=== PATIENT | female | born 1965 | race Caucasian/White ===

== ENCOUNTER 2019-02-22 16:45 | Inpatient (IN) ==
--- NOTE | 2019-02-22 16:56 | CT Scan Report ---
CT head/brain wo con CT DOSE: 729.78 mGycm HISTORY: Mental status change Stroke evaluation TECHNIQUE: Multiaxial CT images of the head were performed without the use of intravenous contrast. A dose lowering technique was utilized adhering to the principles of ALARA. Comparison: None. Findings: The paranasal sinuses and mastoid air cells are clear. The calvarium and skull base are int act. The ventricles and sulci are within normal limits. There is no mass, hematoma, midline shift, or acute infarct. Impression: No acute intracranial abnormality. ACT 112: Negative or not required by law. The above report was generated using voice recognition software. It may contain grammatical, syntax or spelling errors. Electronically signed by: Jorge L Blakely M.D. 02/22/2019 4:55 PM
[2019-02-22] MEDS ORDERED: LORazepam 2 MG/4 ML VIAL ONE (17:09)
[2019-02-22 17:12] LABS: Basophils # (auto) 0.05 K/uL (0-0.2); Basophils % (auto) 0.8 %; Eosinophils # (auto) 0.15 K/uL (0-0.5); Eosinophils % (auto) 2.3 %; Hematocrit (blood only) 38.3 % (37-47); Hemoglobin 12.6 g/dL (12.0-16.0); Immature Granulocytes # (auto) 0.01 K/uL (0.00-0.02); Immature Granulocytes % (auto) 0.2 %; Lymphocytes # (auto) 2.45 K/uL (1.2-3.4); Lymphocytes % (auto) 37.2 %; Mean Corpuscular Hgb Conc 32.9 g/dL (32-36); Mean Corpuscular Volume 91.2 fL (80-100); Mean Platelet Volume 9.7 fL (7.4-10.4); Monocytes # (auto) 0.61 K/uL (0.11-0.59); Monocytes % (auto) 9.3 %; Neutrophils # (auto) 3.31 K/uL (1.4-6.5); Neutrophils % (auto) 50.2 %; Platelet Count 231 K/uL (130-400); RDW Coefficient of Variation 13.4 % (11.5-14.5); RDW Standard Deviation 44.9 fL (36.4-46.3); White Blood Count 6.58 K/uL (4.8-10.8)
[2019-02-22 17:23] LABS: Partial Thromboplastin Ratio 0.9; Partial Thromboplastin Time 25.1 Seconds (21.0-31.0); Prothrombin Time 10.3 Seconds (9.0-12.0)
[2019-02-22 17:29] LABS: Alanine Aminotransferase 19 U/L (12-78); Albumin Level 4.1 gm/dl (3.4-5.0); Aspartate Aminotransferase 14 U/L (15-37); BUN Creatinine Ratio 8.5 (10-20); Blood Urea Nitrogen 8 mg/dl (7-18); Calcium 9.3 mg/dl (8.5-10.1); Carbon Dioxide 28 mmol/L (21-32); Chloride 104 mmol/L (98-107); Creatinine Clr Calc Pharmacy 76.1 ml/min; Est GFR (African American) 78.7; Est GFR (Non-African American) 67.9; Glucose 147 mg/dl (70-99); Potassium 3.5 mmol/L (3.5-5.1); Sodium 140 mmol/L (136-145)
[2019-02-22 17:34] LABS: Albumin Globulin Ratio 1.2 (0.9-2); Alkaline Phosphatase 83 U/L (45-117); Bilirubin,Total 0.3 mg/dl (0.2-1); Globulin 3.5 gm/dl (2.5-4.0); Total Protein 7.6 gm/dl (6.4-8.2); Troponin I < 0.015 ng/ml (0-0.045)
[2019-02-22] MEDS ORDERED: OPTIRAY 320 125ml IV PRN (17:50)
--- NOTE | 2019-02-22 18:17 | CT Scan Report ---
CT angio head w con HISTORY: Mental status change code stroke TECHNIQUE: Multiaxial CT angiography of the head was performed IV contrast: 100 cc Maximum intensi ty projection images were also obtained. A dose lowering technique was utilized adhering to the prin ciples of HAYLIE. COMPARISON: None. FINDINGS: There is no mass, hematoma, midline shift, or acute infarct. Visualized intracranial internship coordinator al carotid arteries, distal vertebral arteries, and basilar artery are widely patent. There is no sig nificant stenosis, occlusion, or aneurysm seen within the bilateral ACAs, MCAs, or ortho tech. IMPRESSION: No significant stenosis, occlusion, or aneurysm within the [place]. ACT 112: Negative or not required by law. The above report was generated using voice recognition software. It may contain grammatical, syntax or spelling errors. Electronically signed by: Jorge L Blakely M.D. 02/22/2019 6:16 PM
--- NOTE | 2019-02-22 18:19 | CT Scan Report ---
CT angio neck with con HISTORY: Mental status change code stroke TECHNIQUE: Multiaxial CT angiography of the neck was performed IV contrast: 100 cc nonionic All alexis urements were calculated based on NASCET criteria. Maximum intensity projection images were also obt ained. A dose lowering technique was utilized adhering to the principles of ALARA. COMPARISON STUDY: None. FINDINGS: The aortic arch and proximal great vessels are widely patent. There is no significant sten osis, occlusion, or dissection identified within the bilateral common carotid, internal carotid, or v ertebral arteries. IMPRESSION: No significant stenosis, occlusion, or dissection identified within the carotid or vertebral arteries . ACT 112: Negative or not required by law. The above report was generated using voice recognition software. It may contain grammatical, syntax or spelling errors. Electronically signed by: Jorge L Blakely M.D. 02/22/2019 6:18 PM
--- NOTE | 2019-02-22 20:24 | History & Physical Report ---
Date of Service February 22, 2019 Assessment & Plan (1) Holden's paralysis: 53-year-old female with a history of multiple sclerosis, depression presents with confusion, word finding issues, sensory issues. On-call tele- stroke neurologist believes that her symptoms represent postictal state with recommendation to start Lamictal. According to the patient's son, new lesions were found on MRI recently. She takes Copaxone for MS and her son states she was recently started on amantadine. Patient is quite confused at this time. Will admit to telemetry with continued neurochecks. 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 Continue stroke work-up including neurochecks, dysphagia evaluation, PT OT CTA of neck, head and head CT were negative We will obtain any MRI of the brain Neurology consulted, appreciate recommendations We will keep the patient n.p.o. at this time as she is still confused. Advance diet as tolerated Depression Continue fluoxetine 40 mg CODE STATUS Full DVT prophylaxis SCDs, ambulate with assistance (2) Seizure: (3) Multiple sclerosis: (4) Depression: History of Present Illness Primary Care Provider: Dr. Alesia Zavala 53-year-old female with a history of multiple sclerosis, depression presents with confusion, word finding issues, sensory issues. At the time of admission, the patient is able to answer yes or no questions, but is still confused and unable to fully articulate herself. The majority of the history was gotten from the son and from the ED physician. The son states that she was alone today and he had gotten a call that she was at the emergency room. Seizure was not observed by any family members. Patient was alone prior to coming into the hospital. According to the ED doc, on-call tele-stroke neurologist believes that her symptoms represent postictal state with recommendation to start Lamictal. The son states that she has been having increased fatigue for about 1 month and was seen by neurologist. They got MRI at that time and reported that she does have a new lesion and her status was changed from relapse/remitting to mild progressive multiple sclerosis. According to the son, she was started on amantadine and was continuing her Copaxone. In addition, the patient takes fluoxetine for depression which her dose was recently increased and November. 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 Beliefs That Will Affect Care: None Current Living Situation: Alone Other Information That Helps Us Care for You: No Feels Safe at Home: Yes Smoking Status: Never smoker Hx Alcohol Use: Yes Alcohol type: wine Hx Substance Use: No Review of Systems Review of Systems: Unobtainable due to mental health condition Physical Exam Constitutional: WD/WN, vitals as above Eyes: PERRL, conjunctivae normal, anicteric sclerae ENMT: external ear and nose normal, oropharynx normal Neck: trachea midline, no thyromegaly Respiratory: normal respiratory effort, lungs clear to auscultation Cardiovascular: RRR, no murmur, no edema Gastrointestinal (Abdomen): normal bowel sounds, soft, nontender, no hepatosplenomegaly Musculoskeletal: no cyanosis or clubbing, extremities motor strength 5/5 Skin: no rashes, warm and dry Neurologic: PERRL, EOMI, accommodation nl, no face palsy, no dysarthria moves all extremities, awake and + confused Speech / Cognition: + abnormal speech and + expressive aphasia Motor/Sensory: no sensory deficit Strength is equal bilaterally in upper and lower extremities Psychiatric: A+Ox3, euthymic affect Results & Data Vital Signs (Past 12 Hours) Vital Signs Temp Pulse Pulse Resp BP BP Pulse Ox 02/22/19 19:43 74 18 142/84 H 95 02/22/19 18:45 75 02/22/19 18:43 83 139/87 96 02/22/19 18:30 82 97 02/22/19 18:18 88 133/80 98 02/22/19 18:15 83 97 02/22/19 18:05 80 145/87 H 93 02/22/19 18:00 92 H 98 02/22/19 17:58 92 H 159/94 H 99 02/22/19 17:30 83 162/91 H 99 02/22/19 17:19 89 96 02/22/19 17:18 88 165/99 H 98 02/22/19 17:15 90 97 02/22/19 17:00 88 99 02/22/19 16:59 91 H 98 02/22/19 16:57 164/99 H 99 02/22/19 16:55 37.0 C 90 18 164/99 H 99 Diagnostic Findings CTA of head neck were negative Head CT was negative Code Status & VTE Plan Code Status Full code VTE Prophylaxis Plan VTE Prophylaxis will be ordered: Yes Supervising Physician Co-Signing Physician Notes Patient was seen and examined by me personally. I reviewed the chart, the orders and discussed the case in detail with Dr. Darrel Santiago MD . I read this H&P and agree with its contents to entirety. Resident Activity Tracking Resident Involvement: Resident Care Provided Care Provided: Adult Hospital Medicine
--- NOTE | 2019-02-22 20:49 | Emergency Department Note ---
Entered by Elise Matias acting as a scribe for History of Present Illness General Chief complaint: Stroke Alert Time Seen by Provider: 02/22/19 16:46 History of Present Illness Provider complaint: stroke-like symptoms Onset (ago): hour(s) 1 Location: head Pain Consistency: + other (episode) Maximum Pain Intensity: 0 Quality: + other (stroke-like symptoms) Associated symptoms: + denies other symptoms (pain) and + other (unable to speak, unable to speak starting at 1550) The patient is a 53 year old female who presents to the ED with complaints of an episode of stroke-like symptoms that started approximately 1 hour ago. Per EMS, the patient is not able to speak and she has a mild left sided facial droop. The patients son (on the phone) states that he was texting the patient at 1300 and she seemed normal. The patients son state that he called the patient at 1550 and she was not unable to verbally respond to him so he activated 911. Per EMS, the patient is not responding to requests. The patient denies being in pain. Per EMS, the patient has a history of MS for which she takes Copaxone. Per EMS, the patient's blood sugar en route was 136. HPI and ROS are limited. Home Medications Home Medications Medication Instructions Recorded Confirmed Type amantadine HCl 100 mg PO BID 02/22/19 02/22/19 History fluoxetine 40 mg PO DAILY 02/22/19 02/22/19 History glatiramer [Copaxone] 40 mg SUBCUT DIRECTED 02/22/19 02/22/19 History Allergies Allergy/AdvReac Type Severity Reaction Status Date / Time SULFA Allergy Unknown Uncoded 02/15/05 13:54 Past Med/Surg History Medical History Multiple sclerosis Social History Smoking Status: Unknown if ever smoked Review of Systems Unobtainable due to cognitive status Physical Exam Vital Signs Vital Signs - 24 hr 02/22/19 16:55 02/22/19 16:57 02/22/19 16:59 Temperature 37.0 C Temperature Source Oral Pulse Rate 90 91 H Pulse Rate [Apical] Pulse Rate from SpO2 Sensor 98 H 92 H Respiratory Rate 18 Respiratory Effort / Characteristics Non-Labored Respiratory Depth Normal Blood Pressure 164/99 H 164/99 H Blood Pressure [Right Arm] Blood Pressure Mean 120 131 Blood Pressure Mean [Right Arm] Pulse Oximetry 99 99 98 Oxygen Delivery Method Sepsis Recent Fever Within 48 Hours No Sepsis New/Unexplained Change in Mental Status No Sepsis Action Taken by Nursing No Action Required 02/22/19 17:00 02/22/19 17:15 02/22/19 17:18 Temperature Temperature Source Pulse Rate 88 90 88 Pulse Rate [Apical] Pulse Rate from SpO2 Sensor 89 90 87 Respiratory Rate Respiratory Effort / Characteristics Respiratory Depth Blood Pressure 165/99 H Blood Pressure [Right Arm] Blood Pressure Mean 134 Blood Pressure Mean [Right Arm] Pulse Oximetry 99 97 98 Oxygen Delivery Method Sepsis Recent Fever Within 48 Hours Sepsis New/Unexplained Change in Mental Status Sepsis Action Taken by Nursing 02/22/19 17:19 02/22/19 17:30 02/22/19 17:58 Temperature Temperature Source Pulse Rate 89 83 92 H Pulse Rate [Apical] Pulse Rate from SpO2 Sensor 90 84 93 H Respiratory Rate Respiratory Effort / Characteristics Respiratory Depth Blood Pressure 162/91 H 159/94 H Blood Pressure [Right Arm] Blood Pressure Mean 101 115 Blood Pressure Mean [Right Arm] Pulse Oximetry 96 99 99 Oxygen Delivery Method Sepsis Recent Fever Within 48 Hours Sepsis New/Unexplained Change in Mental Status Sepsis Action Taken by Nursing 02/22/19 18:00 02/22/19 18:05 02/22/19 18:15 Temperature Temperature Source Pulse Rate 92 H 80 83 Pulse Rate [Apical] Pulse Rate from SpO2 Sensor 89 78 84 Respiratory Rate Respiratory Effort / Characteristics Respiratory Depth Blood Pressure 145/87 H Blood Pressure [Right Arm] Blood Pressure Mean 107 Blood Pressure Mean [Right Arm] Pulse Oximetry 98 93 97 Oxygen Delivery Method Sepsis Recent Fever Within 48 Hours Sepsis New/Unexplained Change in Mental Status Sepsis Action Taken by Nursing 02/22/19 18:18 02/22/19 18:30 02/22/19 18:43 Temperature Temperature Source Pulse Rate 88 82 83 Pulse Rate [Apical] Pulse Rate from SpO2 Sensor 89 82 82 Respiratory Rate Respiratory Effort / Characteristics Respiratory Depth Blood Pressure 133/80 139/87 Blood Pressure [Right Arm] Blood Pressure Mean 101 95 Blood Pressure Mean [Right Arm] Pulse Oximetry 98 97 96 Oxygen Delivery Method Sepsis Recent Fever Within 48 Hours Sepsis New/Unexplained Change in Mental Status Sepsis Action Taken by Nursing 02/22/19 18:45 02/22/19 19:43 02/22/19 20:18 Temperature Temperature Source Pulse Rate 75 Pulse Rate [Apical] 74 75 Pulse Rate from SpO2 Sensor 76 Respiratory Rate 18 18 Respiratory Effort / Characteristics Respiratory Depth Blood Pressure Blood Pressure [Right Arm] 142/84 H 127/88 Blood Pressure Mean Blood Pressure Mean [Right Arm] 103 101 Pulse Oximetry 95 96 Oxygen Delivery Method Room Air Room Air Sepsis Recent Fever Within 48 Hours Sepsis New/Unexplained Change in Mental Status Sepsis Action Taken by Nursing 02/22/19 20:44 02/22/19 20:53 02/22/19 20:57 Temperature Temperature Source Pulse Rate Pulse Rate [Apical] 83 Pulse Rate from SpO2 Sensor Respiratory Rate 18 Respiratory Effort / Characteristics Respiratory Depth Blood Pressure Blood Pressure [Right Arm] 138/95 Blood Pressure Mean Blood Pressure Mean [Right Arm] 109 Pulse Oximetry 88 L 92 97 Oxygen Delivery Method Room Air Room Air Room Air Sepsis Recent Fever Within 48 Hours Sepsis New/Unexplained Change in Mental Status Sepsis Action Taken by Nursing HENT: Exam performed. -Head: Normocephalic and atraumatic. -Right Ear: External ear normal. No mastoid tenderness. -Left Ear: External ear normal. No mastoid tenderness. -Mouth/Throat: The oropharynx is clear and moist. No trismus in the jaw. No dental abscesses or uvula swelling. No oropharyngeal exudate or tonsillar abscesses. EYES: Conjunctivae and EOM are normal. Pupils are equal, round, and reactive to light. Right eye exhibits no discharge. Left eye exhibits no discharge. No scleral icterus. NECK: Normal range of motion. Neck supple. No JVD present. No spinous process tenderness present. No carotid bruit present. No rigidity. No tracheal deviation and normal range of motion present. No Brudzinski's sign and no Kernig's sign no abram. CV: Normal rate, regular rhythm, normal heart sounds and intact distal pulses. There is no peripheral edema. Palpable radial pulses bue. PULM/CHEST: Effort normal and breath sounds normal. No respiratory distress. No stridor. She has no wheezes. She has no rales. Chest Wall: She exhibits no tenderness. ABD: The abdomen is soft. Bowel sounds are normal. She has no distension. No mass is present. There is no tenderness. There is no rebound, no guarding, no Posey's sign and no tenderness at McBurney's point. Rovsig negative NEURO: She is alert. NIHSS: 16. NIHSS (1b: 2, 1c: 1, 6-a: 3, 6-b: 3, 7: 2, 9: 3, 10: 2.) Course Course 165: Code stroke was called from the field by ED provider who took the EMS phone call. Patient was taken directly to CAT scan on arrival to the emergency department. Past medical records reviewed. The patient was evaluated in room B1. A complete history and physical exam was performed. Spoke with the patient's son who is on her cell phone that EMS had out. Per the son, he was texting the patient at 1 PM and she seemed normal. He then stated he called her around 3 PM and she was unable to speak properly so he became concerned and called the authorities to check up on the patient. No one has seen the patient today to know her exact last known normal. 1702: The patient developed an involuntary twitch to the right side of her face. She is still alert with no tonic/clonic movement or LOC. 1704: The patient's CT is normal and we are awaiting a call from telestroke. 1716: I spoke with Dr. Jamey Peace teleroke. He states that he will be online in 5 minutes. He suggests having 5 mg of Ativan ready to give the patient. 1724: Teleneurology is on the phone and evaluating the patient now. Patient's NIH stroke score is now 10. The patient now has twitching in her right upper extremity. He recommends giving the patient 1 mg of Ativan to see if it responds to the twitching. The patient is not 100% aphasic anymore as she is now able to speak in 1 word answers. 1740: The teleneurologist states that he believes the patient's symptoms are more due to seizure. He recommends a head and neck CTA and to load the patient with 1g Keppra IV piggyback. He asked us to call him back if there are any abnormal findings or deterioration in her medical condition. 1840: Patient's CTA was negative. Labs within normal limits. I spoke to the patient's son again at [phone]. [facility] states that they do not believe the patient suffered from an ischemic stroke. 1846: I discussed the patient's case with Dr. Glynn [facility] Hospitalist. She will accept the patient for further management. Consultations Consultation #1: I spoke with Dr. Jamey Peace telestroke. He states that he will be online in 5 minutes. He suggests having 5 mg of Ativan ready to give the patient. Time: 17:16 Consultation #2: I discussed the patient's case with Dr. Glynn [facility] Hospitalist. She will accept the patient for further management. Time: 18:46 Administered Medications Ioversol (Optiray 320 125ml) 119 ml IV ONCE PRN PRN Reason: Interaction Checking Stop: 02/26/19 17:49 Last Admin: 02/22/19 17:52 Dose: 119 ml Documented by: [id number] Discontinued Medications Levetiracetam 1,000 mg/ (Dextrose) 110 mls @ 440 mls/hr IV NOW STA Stop: 02/22/19 17:53 Last Infusion: 02/22/19 18:25 Dose: 0 mls/hr Documented by: [id number] Admin: 02/22/19 18:08 Dose: 440 mls/hr Documented by: [id number] Lorazepam (Ativan) Confirm Administered Dose 2 mg .ROUTE .STK-MED ONE Stop: 02/22/19 17:10 Last Increment: 02/22/19 18:52 Dose: 1 mg Documented by: [id number] Increment: 02/22/19 17:26 Dose: 1 mg Documented by: [id number] Critical Care Time Critical Care Time: Yes Total Critical Care Time: 54 I have personally spent 54 minutes of critical care time in the direct management of this patient. This includes bedside care, interpretation of diagnostic studies, and testing, discussion with consultants, patient, and family members, and other required patient management activities. This 54 minutes is in excess of all separately billable procedures. Medical Decision Making Medical Records Attestation: I reviewed the patient's medical records. Home Medications Current Medication List: was personally reviewed by me Laboratory Data Attestation: I reviewed the patient's lab results. Result diagrams: 02/22/19 17:02 02/22/19 17:02 Lab Results 02/22/19 02/22/19 02/22/19 Range/Units 17:02 17:02 17:02 WBC 6.58 (4.8-10.8) K/uL RBC 4.20 (4.2-5.4) M/uL Hgb 12.6 (12.0-16.0) g/dL Hct 38.3 (37-47) % MCV 91.2 (80-100) fL MCH 30.0 (25-34) pg MCHC 32.9 (32-36) g/dL RDW Std Deviation 44.9 (36.4-46.3) fL RDW Coeff of Marty 13.4 (11.5-14.5) % Plt Count 231 (130-400) K/uL MPV 9.7 (7.4-10.4) fL Immature Gran % (Auto) 0.2 % Neut % (Auto) 50.2 % Lymph % (Auto) 37.2 % Ida % (Auto) 9.3 % Eos % (Auto) 2.3 % Baso % (Auto) 0.8 % Immature Gran # (Auto) 0.01 (0.00-0.02) K/uL Neut # (Auto) 3.31 (1.4-6.5) K/uL Lymph # (Auto) 2.45 (1.2-3.4) K/uL Ida # (Auto) 0.61 H (0.11-0.59) K/uL Eos # (Auto) 0.15 (0-0.5) K/uL Baso # (Auto) 0.05 (0-0.2) K/uL PT 10.3 (9.0-12.0) Seconds INR 1.0 (0.9-1.1) APTT 25.1 (21.0-31.0) Seconds PTT Ratio 0.9 Sodium 140 (136-145) mmol/L Potassium 3.5 (3.5-5.1) mmol/L Chloride 104 (98-107) mmol/L Carbon Dioxide 28 (21-32) mmol/L Anion Gap 8.0 (3-11) BUN 8 (7-18) mg/dl Creatinine 0.95 (0.6-1.2) mg/dl Est Cr Clr Drug Dosing 76.1 ml/min Est GFR ( Amer) 78.7 Est GFR (Non-Af Amer) 67.9 BUN/Creatinine Ratio 8.5 L (10-20) Glucose 147 H (70-99) mg/dl Calcium 9.3 (8.5-10.1) mg/dl Magnesium 2.0 (1.8-2.4) mg/dl Total Bilirubin 0.3 (0.2-1) mg/dl AST 14 L (15-37) U/L ALT 19 (12-78) U/L Alkaline Phosphatase 83 (45-117) U/L Troponin I < 0.015 (0-0.045) ng/ml Total Protein 7.6 (6.4-8.2) gm/dl Albumin 4.1 (3.4-5.0) gm/dl Globulin 3.5 (2.5-4.0) gm/dl Albumin/Globulin Ratio 1.2 (0.9-2) Blood Type Antibody Screen 02/22/19 Range/Units 17:02 WBC (4.8-10.8) K/uL RBC (4.2-5.4) M/uL Hgb (12.0-16.0) g/dL Hct (37-47) % MCV (80-100) fL MCH (25-34) pg MCHC (32-36) g/dL RDW Std Deviation (36.4-46.3) fL RDW Coeff of Marty (11.5-14.5) % Plt Count (130-400) K/uL MPV (7.4-10.4) fL Immature Gran % (Auto) % Neut % (Auto) % Lymph % (Auto) % Ida % (Auto) % Eos % (Auto) % Baso % (Auto) % Immature Gran # (Auto) (0.00-0.02) K/uL Neut # (Auto) (1.4-6.5) K/uL Lymph # (Auto) (1.2-3.4) K/uL Ida # (Auto) (0.11-0.59) K/uL Eos # (Auto) (0-0.5) K/uL Baso # (Auto) (0-0.2) K/uL PT (9.0-12.0) Seconds INR (0.9-1.1) APTT (21.0-31.0) Seconds PTT Ratio Sodium (136-145) mmol/L Potassium (3.5-5.1) mmol/L Chloride (98-107) mmol/L Carbon Dioxide (21-32) mmol/L Anion Gap (3-11) BUN (7-18) mg/dl Creatinine (0.6-1.2) mg/dl Est Cr Clr Drug Dosing ml/min Est GFR ( Amer) Est GFR (Non-Af Amer) BUN/Creatinine Ratio (10-20) Glucose (70-99) mg/dl Calcium (8.5-10.1) mg/dl Magnesium (1.8-2.4) mg/dl Total Bilirubin (0.2-1) mg/dl AST (15-37) U/L ALT (12-78) U/L Alkaline Phosphatase (45-117) U/L Troponin I (0-0.045) ng/ml Total Protein (6.4-8.2) gm/dl Albumin (3.4-5.0) gm/dl Globulin (2.5-4.0) gm/dl Albumin/Globulin Ratio (0.9-2) Blood Type O Positive Antibody Screen NEGATIVE Imaging Data Radiologist's Impression: Radiology results as stated below per my review and the radiologist's interpretation: CT head/brain wo con CT DOSE: 729.78 mGycm HISTORY: Mental status change Stroke evaluation TECHNIQUE: Multiaxial CT images of the head were performed without the use of intravenous contrast. A dose lowering technique was utilized adhering to the principles of ALARA. Comparison: None. Findings: The paranasal sinuses and mastoid air cells are clear. The calvarium and skull base are intact. The ventricles and sulci are within normal limits. There is no mass, hematoma, midline shift, or acute infarct. Impression: No acute intracranial abnormality. ACT 112: Negative or not required by law. The above report was generated using voice recognition software. It may contain grammatical, syntax or spelling errors. Electronically signed by: Jorge L Blakely M.D. 02/22/2019 4:[address] angio head w con HISTORY: Mental status change code stroke TECHNIQUE: Multiaxial CT angiography of the head was performed IV contrast: 100 cc Maximum intensity projection images were also obtained. A dose lowering technique was utilized adhering to the principles of ALARA. COMPARISON: None. FINDINGS: There is no mass, hematoma, midline shift, or acute infarct. Vis ualized intracranial internal carotid arteries, distal vertebral arteries, and basilar artery are widely patent. There is no significant stenosis, occlusion, or aneurysm seen within the bilateral ACAs, MCAs, or oil pumper. IMPRESSION: No significant stenosis, occlusion, or aneurysm within the [place]. ACT 112: Negative or not required by law. The above report was generated using voice recognition software. It may contain grammatical, syntax or spelling errors. Electronically signed by: Jorge L Blakely M.D. 02/22/2019 6:[address] angio neck with con HISTORY: Mental status change code stroke TECHNIQUE: Multiaxial CT angiography of the neck was performed IV contrast: 100 cc nonionic All measurements were calculated based on NASCET criteria. Maximum intensity projection images were also obtained. A dose lowering technique was utilized adhering to the principles of ALARA. COMPARISON STUDY: None. FINDINGS: The aortic arch and proximal great vessels are widely patent. There is no significant stenosis, occlusion, or dissection identified within the bilateral common carotid, internal carotid, or vertebral arteries. IMPRESSION: No significant stenosis, occlusion, or dissection identified within the carotid or vertebral arteries. ACT 112: Negative or not required by law. The above report was generated using voice recognition software. It may contain grammatical, syntax or spelling errors. Electronically signed by: Jorge L Blakely M.D. 02/22/2019 6:18 PM ECG Data Attestation: I personally reviewed and interpreted this ECG as follows: Indication: + other (stroke) Rate (beats per minute): 92 Rhythm: + sinus rhythm ECG Intervals/blocks: + Normal QRS, + Normal IL and + Normal QT-c ECG ST segments: no ST depression and no ST elevation Blood Pressure Blood Pressure Findings: Elevated blood pressure Blood Pressure Disposition: further management by hospitalist ELLIE Narrative 1652: Code stroke was called from the field by ED provider who took the EMS ph one call. Patient was taken directly to CAT scan on arrival to the emergency department. Past medical records reviewed. The patient was evaluated in room B1. A complete history and physical exam was performed. Spoke with the patient's son who is on her cell phone that EMS had out. Per the son, he was texting the patient at 1 PM and she seemed normal. He then stated he called her around 3 PM and she was unable to speak properly so he became concerned and called the authorities to check up on the patient. No one has seen the patient today to know her exact last known normal. 1702: The patient developed an involuntary twitch to the right side of her face. She is still alert with no tonic/clonic movement or LOC. 1704: The patient's CT is normal and we are awaiting a call from telestroke. 1716: I spoke with Dr. Jamey Peace telestroke. He states that he will be online in 5 minutes. He suggests having 5 mg of Ativan ready to give the patient. 1724: Teleneurology is on the phone and evaluating the patient now. Patient's NIH stroke score is now 10. The patient now has twitching in her right upper extremity. He recommends giving the patient 1 mg of Ativan to see if it responds to the twitching. The patient is not 100% aphasic anymore as she is now able to speak in 1 word answers. 1740: The teleneurologist states that he believes the patient's symptoms are more due to seizure. He recommends a head and neck CTA and to load the patient with 1g Keppra IV piggyback. He asked us to call him back if there are any abnormal findings or deterioration in her medical condition. 1840: Patient's CTA was negative. Labs within normal limits. I spoke to the patient's son again at [phone]. [facility] states that they do not believe the patient suffered from an ischemic stroke. 1846: I discussed the patient's case with Dr. Breaux- [facility] Hospitalist. She will accept the patient for further management. Impression & Plan Seizure, Holden's paralysis Discharge Plan Visit Data Chief Complaint: Stroke Alert ED Provider: Bj Gonzalez Discharge Problem: Seizure, Holden's paralysis Patient Disposition: Being Evaluated by Hospitalist Discharge Instructions Interventions: ED Discharge Assessment Last Done: 02/22/19 20:58 Forms Stand Alone Forms: My [employer] Prescriptions Prescriptions: No Action amantadine HCl 100 mg tablet 100 mg PO BID RF: 0 fluoxetine 40 mg capsule 40 mg PO DAILY RF: 0 glatiramer [Copaxone] 40 mg/mL syringe 40 mg SUBCUT DIRECTED RF: 0 Referrals Referrals: PCP,NO [Primary Care Provider] - The scribe's documentation has been prepared under my direction and personally reviewed by me in its entirety. I confirm that the note above accurately reflects all work, treatment, procedures, and medical decision making performed by me.
[2019-02-22] MEDS ORDERED: POLYETHYLENE (MIRALAX) 17 GM PACK PO PRN (21:42)
[2019-02-22] MEDS ORDERED: PHARMACIST DISCHARGE MED REC CONSULT PRN (21:42)
[2019-02-22] MEDS ORDERED: ACETAMINOPHEN 325 MG TAB PO PRN (21:42)
[2019-02-22] MEDS ORDERED: ONDANSETRON INJ 2 MG/ML 2 ML VIAL IV PRN (21:42)
[2019-02-23] MEDS ORDERED: GADOBUTROL 65ML VIAL IV PRN (01:51)
--- NOTE | 2019-02-23 04:01 | Billing Data ---
Date of Service February 22, 2019 Coding Level of Care Code 16093 Initial Inpt Care Lvl 3
[2019-02-23 06:21] LABS: Estimated Average Glucose 120 mg/dl; Hemoglobin A1C 5.8 % (4.5-5.6)
[2019-02-23 07:04] LABS: Basophils # (auto) 0.04 K/uL (0-0.2); Basophils % (auto) 0.8 %; Eosinophils # (auto) 0.12 K/uL (0-0.5); Eosinophils % (auto) 2.3 %; Hematocrit (blood only) 37.6 % (37-47); Hemoglobin 12.3 g/dL (12.0-16.0); Immature Granulocytes # (auto) 0.01 K/uL (0.00-0.02); Immature Granulocytes % (auto) 0.2 %; Lymphocytes # (auto) 1.84 K/uL (1.2-3.4); Lymphocytes % (auto) 35.5 %; Mean Corpuscular Hemoglobin 29.6 pg (25-34); Mean Corpuscular Hgb Conc 32.7 g/dL (32-36); Mean Corpuscular Volume 90.4 fL (80-100); Mean Platelet Volume 9.6 fL (7.4-10.4); Monocytes % (auto) 9.7 %; Neutrophils # (auto) 2.67 K/uL (1.4-6.5); Neutrophils % (auto) 51.5 %; Platelet Count 223 K/uL (130-400); RDW Coefficient of Variation 13.5 % (11.5-14.5); RDW Standard Deviation 44.7 fL (36.4-46.3); Red Blood Count 4.16 M/uL (4.2-5.4); White Blood Count 5.18 K/uL (4.8-10.8)
--- NOTE | 2019-02-23 07:22 | Magnetic Resonance Report ---
Brain MRI WITH AND WITHOUT CONTRAST HISTORY: history of multiple sclerosis, new seizure TECHNIQUE: Multiplanar multisequence MRI of the brain was performed both before and after the intrave nous administration of contrast. COMPARISON STUDY: Head CT 02/22/2019. FINDINGS: No areas of restricted diffusion to suggest acute infarction. There is no mass, hematoma, m idline shift. The midline structures are intact. Paranasal sinuses and mastoid air cells are clear. T he major vascular flow-voids at the skull base are well-maintained. There are few scattered punctate foci of T2 hyperintensity seen within the periventricular and subcortical white matter of the suprate ntorial brain. There is mild atrophy/encephalomalacia involving the majority of the left temporal lob e as well as the left posterior parietal lobe. This also demonstrates subtle increased T2 signal sugg estive of gliosis. 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 IMPRESSION: 1. No acute infarct. 2. A few scattered punctate foci of T2 hyperintensity within the periventricular and subcortical whit e matter of the supratentorial brain. These are nonspecific but favor mild microvascular ischemic kay[place] nge. A demyelinating disease, Lyme disease, or migraines can also have a similar appearance. 3. There is mild atrophy/encephalomalacia involving the majority of the left temporal lobe as well as the left posterior parietal lobe. This also demonstrates subtle increased T2 signal suggestive of gl iosis. 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 ACT 112: Negative or not required by law. Electronically signed by: Kwasi De Guzman M.D. 02/23/2019 7:20 AM
[2019-02-23 07:37] LABS: BUN Creatinine Ratio 7.2 (10-20); Calcium 9.1 mg/dl (8.5-10.1); Est GFR (Non-African American) 77.7; Potassium 3.6 mmol/L (3.5-5.1)
[2019-02-23] MEDS ORDERED: FLUOXETINE HCL 20 MG CAP PO SCH (09:00)
[2019-02-23] MEDS ORDERED: levETIRAcetam 500 MG TAB PO SCH ×2 (09:00→21:00)
[2019-02-23] MEDS ORDERED: CHOLECALCIFEROL 1,000 UNITS TAB PO SCH (12:15)
[2019-02-23] MEDS ORDERED: AMANTADINE HCL 100 MG CAPSULE PO SCH (12:15)
--- NOTE | 2019-02-23 13:44 | Neurology Consultation ---
Date of Consultation February 23, 2019 Assessment & Plan (1) Multiple sclerosis: 1. continue Copaxone 40 mg for now 3 x per week 2. Ocreveus approval pending will follow up with approval issues as outpatient 3.steroids IV tried in the past were not very helpful for seizure flare 4. 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 seizure precautions 2. Keppra 1 g loaded and Keppra 500 mg started increased to BID 3. CTA head and neck done no significant narrowing or stenosis 4. EEG was not ordered 5. there was not LOC according to patient but mostly speech issues unable to find the right words- she states this is similar to the event prior to her being diagnosed with MS 17 years ago 6. out patient EEG should be ordered (4) Depression: 1. currently on Prozac 40 mg daily Supervising Physician Co-Signing Physician Notes Patient was seen and examined. Son at bedside. Reports feeling better day. She has MS and is following with [facility]. On DMT and Amantadine for fatigue. Previo us MRI in Nov 2018. Admitted for possible aphasia and right face and arm numbness. Denies tongue biting or LOC.No of awareness.Denies loss of time or amnesia. No seizure activity witnessed. Denies incontinence or bowel or bladder issues. No fevers. On examine pupils are symmetric and reactive. Speech clear. Tongue midline with no abrasion. Face is symmetric. Comprehension is intact. She can repeat. Following commands. Sensation is intact. No brand or ankle clonus. No tremor or ataxia. Graphesia in both hands although may be due to poor effort. MRI reviewed as well as previous scan from Nov 2018. Multiple T2 Flair signal changes on axial with left temporal lobe atrophy / gliosis. Differential diagnosis includes pseudo-exacerbation Vs focal simple partial seizure. Would recommend to continue Keppra 500 mg BID for possible focal seizure without loss of awareness. Ok to continue amantandine for now. Outpatient routine EEG. Follow up in Neurology as outpatient. I did discuss obtaining a UA prior to leaving although patient declined. Ok to discharge from Neurology standpoint. Advised patient to rest for a few days and work excuse could be provided. History of Present Illness Reason for Consultation: possible seizure history MS Requesting Physician: Peter W Jimmy, DO Attending Physician: Stevan Marquez DO History of Present Illness Jess is a 53 year old female with a PMH multiple sclerosis, depression presents with confusion, word finding issues, and numbness in right arm. Tele neurologist believes that her symptoms represent postictal state and started on Keppra 1g and then 500 mg daily.. There were new lesions were found on MRI in November. She was seen by [facility] MS specialist Dr Gonzalez who recommended she be started on Ocrevus which is currently being reviewed by her insurance company. Currently she takes Copaxone three x per week since 2005 for MS and was on Avonex from [id number] previous to the Copaxone. She was recently started on amantadine for fatigue and was also complaining of cognitive dysfunction. She was very confused and was admitted for neuro checks it is unclear if there were any jerking movements during the episode. Currently she thinks she is closer to her baseline but still some issues with word findings. Her son is in the room and states he had been talking to her on the phone and she was unable to answer some of the questions she was asking. She states when she was in the ED she was unaware her hand was in the air and it was numb. that only lasted about 2 minutes. denies CP, SOB, abdominal pain, current one sided weakness, numbness tingling, N, V vision changes swallowing issues. Allergies Allergy/AdvReac Type Severity Reaction Status Date / Time SULFA Allergy Unknown Uncoded 02/15/05 13:54 Home Medications Home Medications Medication Instructions Recorded Confirmed Type amantadine HCl 100 mg PO BID 02/22/19 02/22/19 History fluoxetine 40 mg PO DAILY 02/22/19 02/22/19 History glatiramer [Copaxone] 40 mg SUBCUT DIRECTED 02/22/19 02/22/19 History levetiracetam [Keppra] 500 mg PO BID 30 Days #60 tab 02/23/19 Rx Patient History Medical History Multiple sclerosis Social History Communication Ability: Effective Recruitment And Outreach Assistant Required: No Beliefs That Will Affect Care: None Current Living Situation: Alone Other Information That Helps Us Care for You: No Feels Safe at Home: Yes Smoking Status: Never smoker Hx Alcohol Use: Yes Alcohol type: wine Hx Substance Use: No Physical Exam Physical Exam: Physical Exam: Constitutional: appearance nourished, healthy and normal Ears, Nose, Mouth and Throat: mucous membranes moist, no injection and skin normal, eyes normal Cardiovascular: normal S-1 and S-2 and regular rate and rhythm Respiratory: clear to auscultation (CTA) and no rales, ronchi or wheeze Musculoskeletal: no peripheral edema and good distal pulses Skin: no stigmata of neurocutaneous disease noted and normal and intact Eyes: extraocular muscles intact (EOMI) and pupils equal, round and reactive to light (PERRL) NEUROLOGIC EXAMINATION: Mental status: Alert and interactive Oriented to full date and location Oriented to person Speech pauses with word finding no slurred speech Cranial Nerves Normal findings for Cranial Nerves II - XII Reflexes: Deep tendon reflexes were symmetrical and graded 2/5. Sensory: to light or cool touch Coordination: finger to nose no bi pass Gait/Stance: Posture sitting in bed, has been up the bathroom no issues Motor: Negative for pronator drift of out stretched arms with eyes closed. Strength: biceps triceps hand seo coordinator 5/5 bilaterally, hip flex patellar/plantar flex ext 5/5 Results & Data Vital Signs (Past 12 Hours) Vital Signs Temp Pulse Pulse Resp BP Pulse Ox 02/23/19 11:51 36.9 C 81 19 125/84 99 02/23/19 08:00 75 02/23/19 07:10 36.7 C 80 19 120/71 98 02/23/19 03:22 36.7 C 78 17 119/72 98 Laboratory Results Abnormal lab results 02/22/19 02/22/19 02/22/19 Range/Units 17:02 17:02 17:02 RBC (4.2-5.4) M/uL [place] # (Auto) 0.61 H (0.11-0.59) K/uL BUN (7-18) mg/dl BUN/Creatinine Ratio 8.5 L (10-20) Glucose 147 H (70-99) mg/dl Hemoglobin A1c 5.8 H (4.5-5.6) % AST 14 L (15-37) U/L Cholesterol (0-200) mg/dl 02/23/19 02/23/19 Range/Units 06:42 06:42 RBC 4.16 L (4.2-5.4) M/uL [place] # (Auto) (0.11-0.59) K/uL BUN 6 L (7-18) mg/dl BUN/Creatinine Ratio 7.2 L (10-20) Glucose (70-99) mg/dl Hemoglobin A1c (4.5-5.6) % AST (15-37) U/L Cholesterol 258 H (0-200) mg/dl Diagnostic Findings CT head-no acute intracranial abnormality. CTA neck-No significant stenosis, occlusion, or dissection identified within the carotid or vertebral arteries. CTA head-no significant stenosis, occlusion, or aneurysm within the [place]. MRA brain with and without-. No acute infarct. A few scattered punctate foci of T2 hyperintensity within the periventricular and subcortical white matter of the supratentorial brain. These are nonspecific but favor mild microvascular ischemic change. A demyelinating disease, Lyme disease, or migraines can also have a similar appearance. There is mild atrophy/encephalomalacia involving the majority of the left temporal lobe as well as the left posterior parietal lobe. This also demonstrates subtle increased T2 signal suggestive of gliosis. 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
--- NOTE | 2019-02-23 14:51 | Electrocardiogram Report ---
Test Reason : Blood Pressure : / mmHG Vent. Rate : 092 BPM Atrial Rate : 092 BPM P-R Int : 152 ms QRS Dur : 086 ms QT Int : 366 ms P-R-T Axes : 070 071 075 degrees QTc Int : 452 ms Normal sinus rhythm Possible Left atrial enlargement Borderline ECG No previous ECGs available Confirmed by Prabhu Grullon ([id number]) on 02/23/2019 2:50:47 PM Referred By: REFERRED SELF Confirmed By:Prabhu Grullon
--- NOTE | 2019-02-23 16:55 | Discharge Summary ---
Date of Service February 23, 2019 Admission HPI Per Admitting Provider 53-year-old female with a history of multiple sclerosis, depression presents with confusion, word finding issues, sensory issues. At the time of admission, the patient is able to answer yes or no questions, but is still confused and unable to fully articulate herself. The majority of the history was gotten from the son and from the ED physician. The son states that she was alone today and he had gotten a call that she was at the emergency room. Seizure was not observed by any family members. Patient was alone prior to coming into the hospital. According to the ED doc, on-call tele-stroke neurologist believes that her symptoms represent postictal state with recommendation to start Lamictal. The son states that she has been having increased fatigue for about 1 month and was seen by neurologist. They got MRI at that time and reported that she does have a new lesion and her status was changed from relapse/remitting to mild progressive multiple sclerosis. According to the son, she was started on amantadine and was continuing her Copaxone. In addition, the patient takes fluoxetine for depression which her dose was recently increased and November. Discharge Data Allergies Allergy/AdvReac Type Severity Reaction Status Date / Time SULFA Allergy Unknown Uncoded 02/15/05 13:54 Consultations 02/22/19 18:46 ED Decision to Admit Stat 02/22/19 21:42 Consult Case Management - Discharge Planning Routine Consult Case Management - Discharge Planning Routine 02/23/19 00:25 Consult Neurology Routine Ordered Studies 02/22/19 16:46 CT head/brain wo con Stat 02/22/19 17:39 CT angio head w con Stat CT angio neck with con Stat 02/23/19 00:03 MR brain wo/w con Routine Hospital Course (1) Holden's paralysis: (2) Seizure: (3) Multiple sclerosis: (4) Depression: Discharge Plan Discharge Items Patient Disposition: Home - Self-Care Reason For Visit: SEIZURE Discharge Diagnosis: Multiple sclerosis, possible flare Possible seizure Condition on Discharge: Good Goals: follow up with neurology for EEG, they will schedule as outpatient follow up with Dr. Gonzalez about approval of Ocreveus take Keppra twice a day until told to stop by neurology Activity: Per Instructions section Bathing: No limitations Exercise/Sports: Gradually increase as tolerated Driving/Machine Use: Resume 3 days after discharge Weightbearing: Full weightbearing Non-emergency contact: Primary Care Provider and Neurologist Call non-emergency contact if: you have any medication questions, your symptoms worsen and you have a fever Follow-up/Referrals: Alesia Carbone MD [Primary Care Provider] - Diet: Regular Addtl Attending Provider Instructions: Medications: - KEPPRA: 500mg twice a day, neurology recommends that you continue this until told to stop by them Difficulty speaking, right sided numbness, transient vision loss neurology favors this as being a mild flare but could have been a seizure will continue Keppra 500mg twice a day on discharge follow up for EEG at [facility] as outpatient, [phone] follow up with [facility] neurology in a few weeks see restrictions above, recommend that you take the next week off of work Pending Studies at Discharge: No Stand-Alone Forms: My [facility] My [employer], Work/School Release (Inpt), Smoking Cessation Medications and DC Order Prescriptions: New levetiracetam [Keppra] 500 mg Tablet 500 mg PO BID 30 Days Qty: 60 RF: 1 Continued amantadine HCl 100 mg tablet 100 mg PO BID RF: 0 fluoxetine 40 mg capsule 40 mg PO DAILY RF: 0 glatiramer [Copaxone] 40 mg/mL syringe 40 mg SUBCUT DIRECTED RF: 0 Discharge Orders: Discharge Order (Routine); Ordered 02/23/19 Ordered By: Stevan Marquez Admission Data Admit Date/Time: 02/22/19 20:07 Attending Provider: Stevan Marquez Admit Provider: Darrel Santiago Primary Care Provider: Alesia Carbone Other Providers: Vanessa Breaux ; Khadra Matthews ; Gagandeep Blancas ; Khadra Valles ; Dave Pappas
== END 2019-02-23 17:39 | disposition home or self-care (01) | DRG 101 ==
LOC: ED 16:45 → 2S 20:07 → SUATTDRO 20:07 → 2S 20:58